=== PATIENT | female | born 1970 | race African-American/Black ===

== ENCOUNTER 2018-01-08 09:48 | Emergency (ER) | payer OTHER ==
[~2018-01-08] VITALS: Ht 165.1 cm; Wt 108.0 kg
[2018-01-08 12:15] VITALS: BP 115/78
[2018-01-08] MEDS ORDERED: IPRATROPIUM BROMIDE (0.02%) 0.5MG/2.5ML NEB HHN STA (12:16)
[2018-01-08] MEDS ORDERED: ALBUTEROL (0.083%) 2.5MG/3ML NEB HHN STA (12:16)
[2018-01-08] MEDS ORDERED: PREDNISONE 20MG TABLET PO STA (12:16)
[2018-01-08] MEDS ORDERED: ALBUTEROL (0.5%) 2.5MG/0.5ML NEB HHN ONE (12:32)
== END 2018-01-08 13:45 | disposition home or self-care (01) ==
LOC: ER 10:38
DX: J20.9 Acute bronchitis, unspecified (principal); I10 Essential (primary) hypertension; F12.90 Cannabis use, unspecified, uncomplicated; Z87.891 Personal history of nicotine dependence
CPT/HCPCS: 71045; 81025; 94644; 99285; J7512; J7611; Z7610

== ENCOUNTER 2019-09-17 13:48 | Emergency (ER) | payer OTHER ==
[~2019-09-17] VITALS: Ht 165.1 cm; Wt 97.0 kg
[2019-09-17 18:34] VITALS: BP 129/99
== END 2019-09-17 18:37 | disposition home or self-care (01) ==
LOC: ER 13:48
DX: J06.9 Acute upper respiratory infection, unspecified (principal); J32.9 Chronic sinusitis, unspecified; I10 Essential (primary) hypertension; F12.10 Cannabis abuse, uncomplicated; Z87.891 Personal history of nicotine dependence; Z90.49 Acquired absence of other specified parts of digestive tract; Z98.890 Other specified postprocedural states; Z91.048 Other nonmedicinal substance allergy status
CPT/HCPCS: 99281